=== PATIENT | male | born 1995 | race Caucasian/White ===

== ENCOUNTER 2017-11-22 23:38 | Emergency (ER) | payer OTHER ==
[2017-11-23] MEDS ORDERED: OXYCODONE-ACETAMINOPHEN 5-325 MG TABLET PO ONE (00:42)
[2017-11-23] MEDS ORDERED: PROMETHAZINE HCL 25 MG TABLET PO ONE (00:42)
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
[2017-11-23] MEDS ORDERED: SILVER SULFADIAZINE 1% CREAM 400 GM TP PRN (01:19)
[2017-11-23 02:25] VITALS: BP 137/90
== END 2017-11-23 02:25 | disposition home or self-care (01) ==
LOC: ER 23:38
DX: T25.222A Burn of second degree of left foot, initial encounter (principal); X19.XXXA Contact with other heat and hot substances, initial encounter; Y93.89 Activity, other specified; Y92.009 Unspecified place in unspecified non-institutional (private) residence as the place of occurrence of the external cause; Z88.0 Allergy status to penicillin; Z88.1 Allergy status to other antibiotic agents
CPT/HCPCS: 99283; 73620; J3490